=== PATIENT | female | born 1975 | race Caucasian/White ===

== ENCOUNTER 2021-12-25 06:30 | Emergency (ER) | payer BC, OTHER ==
[~2021-12-25] VITALS: Ht 157.5 cm; Wt 63.1 kg
[2021-12-25 06:35] VITALS: BP 120/72
--- NOTE | 2021-12-25 07:44 | NUR ---
notified dr conte about pt injury ,informed that no x ray was order as pt is able to move her finger and pt stated she want to take a look and see if it looks good ,she can go to work.
[2021-12-25] MEDS ORDERED: ibuprofen 200mg tablet PO ONE (07:50)
[2021-12-25] MEDS ORDERED: bacitracin 15gm ointment TP ONE (07:50)
== END 2021-12-25 08:29 | disposition home or self-care (01) ==
LOC: ER 06:31
DX: S61.215A Laceration without foreign body of left ring finger without damage to nail, initial encounter (principal); W22.8XXA Striking against or struck by other objects, initial encounter; Y93.89 Activity, other specified; Y92.89 Other specified places as the place of occurrence of the external cause; Y99.8 Other external cause status
CPT/HCPCS: 99283

== ENCOUNTER 2023-02-05 10:38 | Emergency (ER) | payer BC ==
[~2023-02-05] VITALS: Ht 162.6 cm; Wt 54.0 kg
[2023-02-05 10:53] LABS: BASOPHILS % (AUTO) 0.6 % (0-1); EOSINOPHILS # (AUTO) 0.1 X10'3 (0-0.9); EOSINOPHILS % (AUTO) 0.9 % (0-6); HEMATOCRIT 39.6 % (35.0-45.0); HEMOGLOBIN 13.3 g/dl (12.0-16.0); LYMPHOCYTES # (AUTO) 0.3 X10'3 (1.1-4.8); MEAN CORPUSCULAR HEMOGLOBIN 30.8 PG (27.0-31.0); MEAN CORPUSCULAR HGB CONC 33.7 g/dL (33.0-36.5); MEAN CORPUSCULAR VOLUME 91.4 FL (78-98); MEAN PLATELET VOLUME 6.6 FL (7.4-10.4); MONOCYTES # (AUTO) 0.6 X10'3 (0-0.9); MONOCYTES % (AUTO) 8.2 % (2-12); NEUTROPHILS # (AUTO) 6.8 X10'3 (1.8-7.7); NEUTROPHILS % (AUTO) 86.3 % (42-75); PLATELET COUNT 286 X10'3 (140-440); RED BLOOD COUNT 4.33 X10'6 (4.20-5.60); RED CELL DISTRIBUTION WIDTH 13.8 % (11.5-14.5); WHITE BLOOD COUNT 7.9 X10'3 (4.5-11.0)
[2023-02-05 11:09] LABS: ALANINE AMINOTRANSFERASE 15 U/L (12-78); ALBUMIN 3.7 G/DL (3.4-5.0); ALBUMIN/GLOBULIN RATIO 1.3 (1.1-1.5); ALKALINE PHOSPHATASE 72 IU/L (46-116); ANION GAP 8 (8-16); ASPARTATE AMINO TRANSFERASE 12 U/L (10-37); BILIRUBIN,TOTAL 0.3 MG/DL (0.1-1.0); BLOOD UREA NITROGEN 5 MG/DL (7-18); BUN/CREATININE RATIO 6.4 (10.0-20.0); CALCIUM 8.9 MG/DL (8.5-10.1); CHLORIDE 101 MMOL/L (99-107); CREATININE 0.78 MG/DL (0.40-0.90); GLUCOSE 98 MG/DL (70-104); POTASSIUM 3.6 MMOL/L (3.5-5.1); SODIUM 135 MMOL/L (135-145); TOTAL PROTEIN 6.6 G/DL (6.4-8.2); eGFR 80 ML/MIN
[2023-02-05 11:16] LABS: MAGNESIUM 1.9 MG/DL (1.5-2.4)
--- NOTE | 2023-02-05 11:36 | NUR ---
pt having crushing sternal chest pain. Dr. Saunders wants d-dimer since recent travel to [place] over the weekend, try 1 nitro, and repeat ekg.
[2023-02-05] MEDS ORDERED: nitroGLYCERIN 0.4mg SUBLingual tab SL PRN (11:40)
[2023-02-05] MEDS ORDERED: aspirin 81mg tab.chew PO ONE (11:40)
[2023-02-05] MEDS ORDERED: metoclopramide 10mg tablet PO ONE (11:45)
[2023-02-05] MEDS ORDERED: IBUP-2697 PO (11:46)
[2023-02-05 11:48] LABS: D-DIMER 0.31 MG/L FEU (0-0.50)
[2023-02-05] MEDS ORDERED: acetaminophen 325mg tablet PO ONE (11:50)
[2023-02-05] MEDS ORDERED: LIDOcaine Viscous 15ml cup MM ONE (12:00)
[2023-02-05] MEDS ORDERED: mag hydrox/Alum hydrox/simeth 30ml oral suspension PO ONE (12:00)
--- NOTE | 2023-02-05 13:02 | NUR ---
PT REPORTED 0/10 PAIN AND DID NOT WANT XYLOCAINE AND MAALOX. REPORTED TO .
[2023-02-05 13:33] VITALS: BP 101/60
== END 2023-02-05 13:35 | disposition home or self-care (01) ==
LOC: ER 10:39
DX: R07.89 Other chest pain (principal); R10.13 Epigastric pain; K21.9 Gastro-esophageal reflux disease without esophagitis; Z79.899 Other long term (current) drug therapy
CPT/HCPCS: 36415; 71045; 80053; 83735; 83880; 84484; 85025; 85379; 93005; 99285